=== PATIENT | male | born 1950 | race Caucasian/White ===

== ENCOUNTER 2022-01-16 06:02 | Day surgery (SDC) | payer MEDICARE, BC ==
[~2022-01-16] VITALS: Ht 177.8 cm; Wt 117.8 kg
[~2022-01-16 06:02] MED LIST: ASPI81CH PO; Acerola C500 MG PO; Cialis10 MG PO; DHEA MICRONIZED10 MG PO; ENTRESTO 97 MG1 EACH PO; FURO40 PO; METOPROLOL PO; MULVITA PO; PRAV20 PO; PROSTATE HEALTH PO; SPIR25 PO; TAMS.4ER PO; TURMERIC500 M2 PO; VITAMIN B125000 MC1 PO; VITAMIN D310 MC4 PO; ZINC15 PO; [UNRECOGNIZED DRUG - OTHER] PO
--- NOTE | 2022-01-16 06:40 | NUR ---
Ambulatory in [facility] warming gown applied. History, Chart, Medications and Allergies reviewed before start of procedure.Lungs clear T/O to Auscultation. Patient confirms NPO status and agrees with scheduled surgery. Pre-Op teaching done. Pt verbalizes understanding. Patient States Post-Procedure ride home has been arranged.
--- NOTE | 2022-01-16 09:42 | NUR ---
Patient up to Ambulate independently. Gait steady. Discharge instructions reviewed with patient. Patient verbalizes understanding. Copy given to patient to take home. Discharged via wheelchair to private car for ride home.
--- NOTE | 2022-01-16 09:53 | NUR ---
PT GIVEN FALL PREVENTION BROCHURE.
== END 2022-01-16 23:39 | disposition home or self-care (01) ==
LOC: ORSCMMR 06:02 → ORD 07:30 → ORSCMMR 23:39
PROVIDERS: Surgery
PROC: 0JB00ZX Excision of Scalp Subcutaneous Tissue and Fascia, Open Approach, Diagnostic (ICD-10-PCS; principal; 2022-01-16 07:30)
DX: D17.0 Benign lipomatous neoplasm of skin and subcutaneous tissue of head, face and neck (principal); E78.5 Hyperlipidemia, unspecified; I10 Essential (primary) hypertension; G47.33 Obstructive sleep apnea (adult) (pediatric); E66.9 Obesity, unspecified; Z68.37 Body mass index [BMI] 37.0-37.9, adult; Z79.899 Other long term (current) drug therapy; Z79.82 Long term (current) use of aspirin
CPT/HCPCS: 88304; J1100; J2250; J2370; J2405; J2704; J2795; J3010; J7120